=== PATIENT | male | born 2000 | race Two or more races ===

== ENCOUNTER 2024-02-13 13:53 | Emergency (ER) | payer SELFPAY ==
[~2024-02-13] VITALS: Ht 172.7 cm; Wt 104.5 kg
[2024-02-13 14:28] VITALS: BP 147/94; PULSE 99; RESP 18; TEMP 98.5; O2SAT 99
[2024-02-13 14:42] LABS: COVID AG,FIA SOURCE NASAL SWAB
[2024-02-13] MEDS ORDERED: ACET-66 PO (15:37)
[2024-02-13] MEDS: GuaiFENesin/D-METHORPHAN [SUGAR-FREE] 200-20MG/10 ML SYRUP UDCUP PO ONE (15:37)
[2024-02-13] MEDS: ACETAMINOPHEN 500 MG TABLET PO ONE (15:37)
[2024-02-13] MEDS ORDERED: IBUP-1554 PO (15:37)
[2024-02-13] MEDS ORDERED: GUAIFDM PO (15:37)
[2024-02-13 15:48] LABS: INFLUENZA TYPE B NEGATIVE FOR TYPE B (NEGATIVE); SARS-COV2 (COVID) ANTIGEN,FIA Negative (Negative)
[2024-02-13 15:54] LABS: INFLUENZA TYPE A POSITIVE FOR TYPE A (NEGATIVE)
== END 2024-02-13 16:19 | disposition home or self-care (01) ==
LOC: EMS 13:53
DX: J10.1 Influenza due to other identified influenza virus with other respiratory manifestations (principal); Z20.822 Contact with and (suspected) exposure to COVID-19
CPT/HCPCS: 87804; 99283